=== PATIENT | female | born 1990 | race Caucasian/White ===

== ENCOUNTER 2018-03-01 09:58 | Inpatient (IN) | payer OTHER ==
[2018-02-28 14:00] LABS: BILIRUBIN,URINE NEGATIVE (NEGATIVE); BLOOD, URINE NEGATIVE (NEGATIVE); CLARITY/URINE CLEAR (CLEAR); COLOR,URINE YELLOW (YELLOW); GLUCOSE,URINE NEGATIVE (NEGATIVE); KETONES,URINE NEGATIVE (NEGATIVE); LEUKOCYTE ESTERASE ,URINE NEGATIVE (NEGATIVE); NITRITE, URINE NEGATIVE (NEGATIVE); PROTEIN URINE NEGATIVE (NEGATIVE); UROBILINOGEN,URINE 0.2 (0.2-1.0)
[2018-02-28 14:23] LABS: RED CELL DISTRIBUTION WIDTH 15.1 % (9.0-15.0)
[2018-02-28 14:26] LABS: HEMATOCRIT 32.3 % (36-48); HEMOGLOBIN 10.8 g/dL (12.0-16.0); MEAN CORPUSCULAR HEMOGLOBIN 26 pg (27-31); MEAN CORPUSCULAR HGB CONC 33 % (32-36); MEAN CORPUSCULAR VOLUME 76 fL (79.0-98.0); PLATELET COUNT (AUTO) 238 K/uL (130-430); RED BLOOD CELL COUNT(AUTO) 4.23 MIL/uL (4.2-6.2); WHITE BLOOD COUNT (AUTO) 9.8 K/uL (4.8-10.8)
[2018-02-28 14:52] LABS: BASOPHILS % (MANUAL) 0 % (0-2); EOSINOPHILS % (MANUAL) 0 % (0-7); LYMPHOCYTES % (MANUAL) 20 % (20-46); MONOCYTES % (MANUAL) 5 % (0-11)
[~2018-03-01] VITALS: Ht 157.5 cm; Wt 59.9 kg
[2018-03-01] MEDS ORDERED: LR 1,000 ML IV ONE (10:36)
[2018-03-01] MEDS ORDERED: METOCLOPRAMIDE HCL 10 MG/2 ML VIAL IVP ONE (10:45)
[2018-03-01] MEDS ORDERED: CEFAZOLIN 2 GM IVPB PREMIX 50 ML IV ONE (11:26)
[2018-03-01] MEDS ORDERED: MORPHINE SULFATE 10MG/10ML PF AMP SP SCH (12:45)
[2018-03-01] MEDS ORDERED: DIPHENHYDRAMINE INJ 50 MG/ML VIAL IVP PRN (12:45)
[2018-03-01] MEDS ORDERED: ONDANSETRON HCL 4 MG/2 ML VIAL IVP PRN ×2 (12:45)
[2018-03-01] MEDS ORDERED: NALOXONE HCL 0.4 MG/ML AMP (NARCAN) IVP PRN ×2 (12:45)
[2018-03-01] MEDS ORDERED: NALBUPHINE HCL 10 MG/ML AMP IVP PRN (12:45)
[2018-03-01] MEDS ORDERED: KETOROLAC TROMETHAMINE 60 MG/2 ML VIAL IM PRN (12:45)
[2018-03-01] MEDS ORDERED: fentaNYL CITRATE/PF 100 MCG/2 ML AMP ONE ×2 (12:48→17:42)
[2018-03-01] MEDS ORDERED: ROPIVACAINE 0.2% 100 ML ONE ×2 (12:48→17:42)
[2018-03-01] MEDS ORDERED: OXYTOCIN/0.9 % SODIUM CHLORIDE 1,000 ML IV SCH ×2 (13:02→21:42)
[2018-03-01] MEDS ORDERED: OXYTOCIN/0.9 % SODIUM CHLORIDE 1,000 ML IV ONE ×2 (13:27→21:42)
[2018-03-01] MEDS ORDERED: LR 500 ML IV ONE (13:31)
[2018-03-01] MEDS ORDERED: FENT2mCg/mL-ROPIVA0.2%/NS EPID 150 ML EP SCH (13:45)
[2018-03-01 15:49] VITALS: BP_SYST 103
[2018-03-01] MEDS ORDERED: METHYLERGONOVINE MALEATE 0.2 MG TABLET PO PRN (21:45)
[2018-03-01] MEDS ORDERED: IBUPROFEN 800 MG TABLET PO PRN (21:45)
[2018-03-01] MEDS ORDERED: OXYCODONE/ACETAMINOPHEN 5-325 TABLET PO PRN ×2 (21:45)
[2018-03-01] MEDS ORDERED: HYDROCORTISONE 0.5%, 28.35 GM TOPICAL CREAM TP PRN (21:45)
[2018-03-01] MEDS ORDERED: RHO(D) IMMUNE GLOBULIN/MALTOSE 1500 UNITS/1.3 ML (WINHRO) IM PRN (21:45)
[2018-03-01] MEDS ORDERED: LANOLIN 7 GM OINT. TP PRN (21:45)
[2018-03-01] MEDS ORDERED: ANUSOL 1 EA SUPP.RECT (PREPARATION H) RC PRN (21:45)
[2018-03-01] MEDS ORDERED: SENNOSIDES/DOCUSATE SODIUM 1 TAB TABLET(SENOKOT-S) PO PRN (21:45)
[2018-03-01] MEDS ORDERED: DERMOPLAST SPRAY TP PRN (21:45)
[2018-03-01] MEDS ORDERED: MEASLES,MUMPS&RUBELLA VACC/PF 12500 UNIT/0.5 ML VIAL SUBQ PRN (21:45)
[2018-03-01] MEDS ORDERED: DOCUSATE SODIUM 100 MG CAPSULE PO PRN (21:45)
[2018-03-01] MEDS ORDERED: GLYCERIN/WITCH HAZEL (TUCKS PADS) TP PRN (21:45)
[2018-03-02 07:32] LABS: HEMATOCRIT 32.3 % (36-48); HEMOGLOBIN 10.3 g/dL (12.0-16.0)
[2018-03-02] MEDS: IBUPROFEN 600 MG TABLET PO PRN ×3 (09:12→21:10)
[2018-03-03] MEDS: IBUPROFEN 600 MG TABLET PO PRN (02:57)
== END 2018-03-03 13:29 | disposition home or self-care (01) | DRG 775 ==
LOC: SPU 09:58
PROVIDERS: ADMIT Obstetrics & Gynecology; ATTEND Obstetrics & Gynecology
PROC: 10E0XZZ Delivery of Products of Conception, External Approach (ICD-10-PCS; principal; 2018-03-01)
PROC: 0KQM0ZZ Repair Perineum Muscle, Open Approach (ICD-10-PCS; 2018-03-01)
PROC: 3E0R3BZ Introduction of Anesthetic Agent into Spinal Canal, Percutaneous Approach (ICD-10-PCS; 2018-03-01)
PROC: 00HU33Z Insertion of Infusion Device into Spinal Canal, Percutaneous Approach (ICD-10-PCS; 2018-03-01)
DX: O24.429 Gestational diabetes mellitus in childbirth, unspecified control (principal); O69.81X0 Labor and delivery complicated by cord around neck, without compression, not applicable or unspecified; O70.1 Second degree perineal laceration during delivery; Z3A.39 39 weeks gestation of pregnancy; Z37.0 Single live birth
CPT/HCPCS: 36415; 81003; 85007; 85018-TC; 85027; 86592; 86886; 86900; 86901; J0690; J2590; J2795; J3010